=== PATIENT | male | born 1990 | race Caucasian/White ===

== ENCOUNTER 2021-12-25 00:26 | Emergency (ER) | payer OTHER, BC ==
[2021-12-25] MEDS ORDERED: Ketorolac 30 MG/ML SDV IM ONE (01:29)
[2021-12-25] MEDS ORDERED: traMADol 50 MG Tab PO ONE (01:29)
== END 2021-12-25 01:50 | disposition home or self-care (01) ==
LOC: LL.ED 00:26
DX: S90.32XA Contusion of left foot, initial encounter (principal); E66.9 Obesity, unspecified; Z68.41 Body mass index [BMI] 40.0-44.9, adult; W22.09XA Striking against other stationary object, initial encounter; Y99.0 Civilian activity done for income or pay
CPT/HCPCS: 73600-LT; 73620-LT; 96372; 99283; A9270-GY; J1885